=== PATIENT | male | born 1955 | race Hispanic/Latino ===

== ENCOUNTER 2023-11-08 05:57 | Day surgery (SDC) | payer OTHER ==
[2023-10-31 11:04] VITALS: BP 130/71; PULSE 83; RESP 18
[2023-10-31 11:31] LABS: BASOPHILS # (AUTO) 0.04 K/uL (0.00-0.20); BASOPHILS % (AUTO) 0.5 % (0.0-5.0); EOSINOPHILS % (AUTO) 3.7 % (0.0-8.0); HEMATOCRIT 38.6 % (42-54); IMMATURE GRANULOCYTE ABSOLUTE 0.03 K/uL (0-1); LYMPHOCYTES % (AUTO) 24.2 % (21.0-51.0); MEAN CORPUSCULAR HEMOGLOBIN 31.5 pg (27.0-33.0); MEAN CORPUSCULAR HGB CONC 33.7 g/dL (32.0-36.0); MEAN CORPUSCULAR VOLUME 93.5 fL (79-99); MONOCYTES # (AUTO) 0.6 K/uL (0.1-1.0); MONOCYTES % (AUTO) 7.3 % (3.0-13.0); NEUTROPHILS # (AUTO) 5.2 K/uL (1.8-7.7); NEUTROPHILS % (AUTO) 63.9 % (40.0-77.0); PLATELET COUNT (AUTO) 254 K/uL (130-400); RED BLOOD CELL COUNT(AUTO) 4.13 MIL/uL (4.50-6.20); RED CELL DISTRIBUTION WIDTH 12.8 % (11.0-15.5); WHITE BLOOD COUNT (AUTO) 8.1 K/uL (4.8-10.8)
[2023-10-31 11:39] LABS: CREATININE 0.8 mg/dL (0.5-1.3)
[2023-10-31 11:43] LABS: INR 0.97 (0.85-1.15); PROTHROMBIN TIME 10.5 SEC (9.6-11.6)
[2023-10-31 11:44] LABS: PARTIAL THROMBOPLASTIN TIME 28.1 SEC (26.3-35.5)
[2023-11-08] VITALS (17 sets, daily range): BP systolic 131–155; BP diastolic 63–82; PULSE 61–75; RESP 12–16
[~2023-11-08] VITALS: Ht 177.8 cm; Wt 101.6 kg
[2023-11-08] MEDS: 0.9%NACL 1000ML 1,000 ML IV ONE (06:57)
[2023-11-08] MEDS: CEFAZOLIN SODIUM 1 GM VIAL ONE (06:58)
[2023-11-08] MEDS: CEFAZOLIN SODIUM 2 GM VIAL ONE (06:58)
[2023-11-08] MEDS ORDERED: ACETAMINOPHEN 1,000 MG/100 ML VIAL IV ONE (07:00)
[2023-11-08] MEDS ORDERED: FAMOTIDINE 20MG VIAL IV ONE (07:00)
[2023-11-08] MEDS ORDERED: PROPOFOL 10 MG/ML 20ML VIAL IV ONE (07:19)
[2023-11-08] MEDS ORDERED: ROCURONIUM BROMIDE 10MG/1ML 5ML VL ONE ×2 (07:19→08:18)
[2023-11-08] MEDS ORDERED: LIDOCAINE PF 100MG/5ML (2%) SYRINGE 5ML ONE (07:19)
[2023-11-08] MEDS ORDERED: FENTANYL CITRATE PF 50 MCG/1 ML 2ML VIAL ONE (07:20)
[2023-11-08] MEDS ORDERED: ROPIVACAINE 0.5% 5MG/ML 30ML ONE (07:22)
[2023-11-08] MEDS ORDERED: BUPIVACAINE/PF 0.25% 30ML VIAL IJ ONE (07:24)
[2023-11-08] MEDS ORDERED: EPINEPHRINE PF 1MG (1:1,000) 1 MG/ML AMP ONE (07:24)
[2023-11-08] MEDS ORDERED: GLIP5TAB15 PO (07:28)
[2023-11-08] MEDS ORDERED: LOSA25TA41 PO (07:28)
[2023-11-08] MEDS ORDERED: MULT-1192 PO (07:28)
[2023-11-08] MEDS ORDERED: SERT-438 PO (07:28)
[2023-11-08] MEDS ORDERED: METO50TA18 PO (07:28)
[2023-11-08] MEDS ORDERED: ASPI-1197 PO (07:28)
[2023-11-08] MEDS ORDERED: PIOG15TA66 PO (07:28)
[2023-11-08] MEDS ORDERED: B CO1TAB8 PO (07:28)
[2023-11-08] MEDS ORDERED: ATOR40TA69 PO (07:28)
[2023-11-08] MEDS ORDERED: UBID10CA6 PO (07:28)
[2023-11-08] MEDS ORDERED: ENAL-91 PO (07:28)
[2023-11-08] MEDS ORDERED: METF-446 PO (07:28)
[2023-11-08] MEDS ORDERED: DEXAMETHASONE SOD PHOSPHATE 10MG/ML 1ML VIAL ONE (08:07)
[2023-11-08] MEDS ORDERED: ONDANSETRON 4MG INJ ONE (08:07)
[2023-11-08] MEDS ORDERED: NEOSTIGMINE METHYLSULFATE 1MG/ML IV ONE (08:27)
[2023-11-08] MEDS ORDERED: GLYCOPYRROLATE 0.2 MG/ML 5 ML VIAL ONE (08:27)
[2023-11-08] MEDS ORDERED: GABA-529 PO (08:32)
[2023-11-08] MEDS ORDERED: TRAM50TA4 PO (08:32)
[2023-11-08] MEDS ORDERED: METH-662 PO (08:32)
[2023-11-08] MEDS ORDERED: DOCU-116 PO (08:32)
[2023-11-08] MEDS: CEFAZOLIN SODIUM 2 GM VIAL IVPB ONE (08:51)
[2023-11-08] MEDS: MEPERIDINE-PF 25 MG/ML SYG ONE (09:16)
== END 2023-11-08 10:25 | disposition home or self-care (01) ==
LOC: DAH 05:57
PROVIDERS: ATTEND Surgery
DX: K43.6 Other and unspecified ventral hernia with obstruction, without gangrene (principal); I10 Essential (primary) hypertension; E11.9 Type 2 diabetes mellitus without complications; E78.00 Pure hypercholesterolemia, unspecified; I25.2 Old myocardial infarction; Z79.01 Long term (current) use of anticoagulants; Z96.659 Presence of unspecified artificial knee joint; Z98.61 Coronary angioplasty status; Z79.82 Long term (current) use of aspirin; Z79.84 Long term (current) use of oral hypoglycemic drugs; Z79.899 Other long term (current) drug therapy
CPT/HCPCS: 80048; 85025; 85610; 85730; 86850 ×2; 86900 ×2; 86901 ×2; 36415 ×2; 93005; 64488; 49594; 82948 ×2; A6260; A4600; A4663; J7030 ×3; J3490 ×4; J3010; J0690 ×3; J1100; J0665; J2001; J0171; J2704; J2405; J2710; J2175; J2795; G0168; A4649 ×2; C1781; A4930 ×3; A4215; A4223; A4222; A4221